=== PATIENT | male | born 1970 | race Caucasian/White ===

== ENCOUNTER 2019-05-17 09:22 | Day surgery (SDC) | payer BC ==
[2019-05-17] MEDS ORDERED: Lactated Ringers 1,000 ML IV SCH (10:00)
[2019-05-17] MEDS ORDERED: DIPRIVAN 200 MG/20 ML IV ONE ×2 (11:04→11:11)
[2019-05-17 12:01] VITALS: O2SAT 100
[2019-05-17 12:24] VITALS: BP 159/94; PULSE 54
--- NOTE | 2019-05-17 15:25 | OP ---
SURGERY DATE/TIME: 05/17/2019 1109 PREOPERATIVE DIAGNOSES: 1) History of rectal bleeding in the past. No prior colonoscopy. 2) Prior history of ulcer and history of bariatric surgery in the past. POSTOPERATIVE DIAGNOSES: 1) Polyp sigmoid colon. 2) Small raised lesion sigmoid colon. 3) Fair bowel prep. 4) A few diverticula left colon. 5) Small internal hemorrhoids. PROCEDURES: 1) Colonoscopy to terminal ileum. 2) Retrograde ileoscopy. 3) Hot snare polypectomy small sigmoid colon polyp. 4) Hot biopsy small raised lesion versus early polyp or hyperplastic lesion sigmoid colon. SURGEON: Dr. Adarsh Blakely. ANESTHESIA: MAC. ESTIMATED BLOOD LOSS: Minimal. INDICATIONS: As noted above. Risks and benefits explained in detail but not limited to and consent obtained. DESCRIPTION OF PROCEDURE AND FINDINGS: The patient is taken to the operating room. MAC anesthesia introduced. After official time out and no disagreement with planned procedure, digital rectal exam did not reveal any rectal masses. He did have some small internal and external hemorrhoids. Video colonoscope was carefully inserted and passed up through the slightly tortuous sigmoid, descending, transverse and ascending colon across around to the ascending colon and cecum. Appendiceal orifice well visualized as well as the valve. The scope was able to be passed up the terminal ileum. Retrograde ileoscopy performed which was grossly unremarkable. Scope was carefully withdrawn. Prep overall was fair. There was a little bit of liquidy stool suction irrigated as clear as possible just slightly limiting the exam for very tiny lesion. The scope is slowly and carefully withdrawn over the next 9 minutes. He had a few diverticula in the left colon. He did have a small 3.5 mm polyp in the sigmoid colon that was removed with hot snare polypectomy and this appeared adenomatous in nature, path pending. Another small raised lesion versus hyperplastic lesion nearby was removed with hot biopsy forceps with brief bursts of cautery. Good hemostasis noted. Otherwise in the rectum there were some small internal and external hemorrhoids. There were no signs of any large polyps, masses or obstructing lesions. No signs of fresh or old blood in the colon. The patient tolerated the procedure well. There were no immediate complications. Findings discussed with the family out in the waiting area.
--- NOTE | 2019-05-17 15:29 | HP ---
DATE OF SURGERY: 05/17/2019 HISTORY OF PRESENT ILLNESS: The patient is a 49 year-old with no prior colonoscopy. He had some rectal bleeding a few weeks and required transfusion. He had upper GI and had small ulcer. Family history negative for colon cancer. He has some diverticular disease in the family. He is in need of colonoscopy to make sure there was not a lower GI source as well. PAST MEDICAL HISTORY: Diabetes, hypertension. PAST SURGICAL HISTORY: Cholecystectomy. Gastric bypass. Steffi-en-Y in the past. Hernia repair in the past. Delta teeth in the past. MEDICATIONS: None on a regular basis. Calcium, vitamin B12, multivitamins, losartan, omeprazole, sucralfate, vitamin D3. ALLERGIES: NKDA. FAMILY HISTORY: Heart disease, liver cancer, prostate cancer. Negative for colon cancer. He has some diverticular disease in the family. SOCIAL HISTORY: He does drink some alcohol denies abuse. No smoking or alcohol abuse. He quit smoking a few years ago. REVIEW OF SYSTEMS: Fourteen systems reviewed per admission assessment. No chest pain or palpitations. No current rectal bleeding. No current abdominal pain. PHYSICAL EXAMINATION: GENERAL: No acute distress. HEENT: Sclerae nonicteric. NECK: No JVD. CHEST: Equal excursion, nonlabored breathing. CVS: Regular rate and rhythm. ABDOMEN: Soft. No peritoneal signs. EXTREMITIES: No significant edema. NEURO: Alert, moving extremities symmetrically. No gross motor deficits noted. RECTAL: Deferred timed to endoscopy exam. IMPRESSION: History of some rectal bleeding in the recent past requiring transfusion. He did have some ulceration at [facility]. He is in need of colonoscopy to rule out any additional lower GI source. General risk of bleeding or infection, risk of bowel injury or perforation possibly requiring further procedure, risk of missed or nondiagnosis or incomplete exam possibly requiring barium enema, other studies or procedures, general risk of anesthesia or sedation, risk of bowel prep but not limited to or sedation. Consent is obtained. Will proceed with outpatient colonoscopy.
== END 2019-05-17 12:26 | disposition home or self-care (01) ==
LOC: SDC 09:22
PROVIDERS: ATTEND Surgery
DX: K63.5 Polyp of colon (principal); K57.30 Diverticulosis of large intestine without perforation or abscess without bleeding; D12.8 Benign neoplasm of rectum; K64.8 Other hemorrhoids; E11.9 Type 2 diabetes mellitus without complications; I10 Essential (primary) hypertension
CPT/HCPCS: 88305; J2704